=== PATIENT | male | born 1970 | race Caucasian/White ===

== ENCOUNTER 2017-11-14 17:04 | Observation (INO) | payer SELFPAY ==
[~2017-11-14] VITALS: Ht 182.9 cm; Wt 111.3 kg
[2017-11-14 17:39] LABS: BASOPHIL (%) 0.5 % (0-1); EOSINOPHIL (%) 0.6 % (0-5); EOSINOPHIL COUNT 0.1 K/uL (0-0.3); HEMATOCRIT 40.3 % (38.0-50.0); HEMOGLOBIN 14.7 G/DL (12.5-16.6); IMMATURE GRANULOCYTE (%) 0.4 % (0.0-0.7); LYMPHOCYTE (%) 28.1 % (15-42); LYMPHOCYTE COUNT 2.3 K/uL (1.0-2.8); MCH 33.2 PG (29.0-34.0); MCHC 36.5 G/DL (30.0-36.0); MONOCYTE (%) 7.9 % (3-12); MONOCYTE COUNT 0.7 K/uL (0-0.8); NEUTROPHIL (%) 62.5 % (45-76); NEUTROPHIL COUNT 5.1 K/uL (1.8-6.4); PLATELET COUNT 228 K/uL (156-360); RBC DIS.WIDTH-CV 12.4 % (11.8-14.6); RBC DIS.WIDTH-SD 41.2 % (39-53); RED BLOOD COUNT 4.43 M/uL (4.00-5.50); WHITE BLOOD COUNT 8.2 K/uL (4.1-10.2)
[2017-11-14 18:00] LABS: AMYLASE 44 IU/L (1-118); CHLORIDE 107 mEq/L (99-109); POTASSIUM 3.9 mEq/L (3.7-5.4); SODIUM 137 mEq/L (136-147)
[2017-11-14 18:02] LABS: GLUCOSE 107 mg/dL (70-99)
[2017-11-14 18:05] LABS: SERUM ETHYL ALCOHOL 10 mg/dL
[2017-11-14 18:06] LABS: CREATININE 0.9 mg/dL (0.6-1.3)
[2017-11-14 18:07] LABS: UREA NITROGEN (BUN) 22 mg/dL (9-23)
[2017-11-14 18:09] LABS: LIPASE 26 U/L (1.0-51.0)
[2017-11-14 18:14] LABS: GFR ESTIMATE (CALCULATED) > 59 mL/min/ (58.99-99999)
[2017-11-14 20:26] LABS: HEMATOCRIT 33.9 % (38.0-50.0); MCH 33.4 PG (29.0-34.0); MCHC 35.4 G/DL (30.0-36.0); MCV 94.4 FL (86-99); PLATELET COUNT 232 K/uL (156-360); RBC DIS.WIDTH-CV 12.8 % (11.8-14.6); RED BLOOD COUNT 3.59 M/uL (4.00-5.50); WHITE BLOOD COUNT 16.9 K/uL (4.1-10.2)
[2017-11-14 21:59] VITALS: BP 122/74
[2017-11-14 23:50] VITALS: BP 126/70
[2017-11-15 03:12] LABS: APPEARANCE CLEAR ((CLEAR)); BILIRUBIN NEGATIVE; BLOOD NEGATIVE; COLOR YELLOW ((YELLOW)); GLUCOSE (STRIP) NEGATIVE; KETONES NEGATIVE; LEUKOCYTES NEGATIVE; NITRITE NEGATIVE; PROTEIN (STRIP) NEGATIVE; SPECIFIC GRAVITY 1.046 (1.000-1.030); UCUL ADDED? NO; UROBILINOGEN 0.2 MG/DL (0.2-1.0)
[2017-11-15 03:33] LABS: BENZODIAZEPINES, URINE SCREEN POSITIVE (200 ng/mL)
[2017-11-15 04:06] VITALS: BP 110/59
[2017-11-15 06:40] LABS: HEMATOCRIT 30.7 % (38.0-50.0); HEMOGLOBIN 10.7 G/DL (12.5-16.6); MCH 32.7 PG (29.0-34.0); MCHC 34.9 G/DL (30.0-36.0); MCV 93.9 FL (86-99); PLATELET COUNT 213 K/uL (156-360); RBC DIS.WIDTH-CV 12.6 % (11.8-14.6); RBC DIS.WIDTH-SD 43.9 % (39-53); RED BLOOD COUNT 3.27 M/uL (4.00-5.50); WHITE BLOOD COUNT 11.5 K/uL (4.1-10.2)
[2017-11-15 07:04] LABS: CHLORIDE 103 MEQ/L (99-109); CREATININE 0.9 MG/DL (0.6-1.3); GFR ESTIMATE (CALCULATED) > 59 mL/min/ (58.99-99999); GLUCOSE 114 mg/dL (70-99); SODIUM 137 MEQ/L (136-147); UREA NITROGEN (BUN) 16 mg/dL (9-23)
[2017-11-15 07:06] LABS: POTASSIUM 5.2 MEQ/L (3.7-5.4)
[2017-11-15 07:59] VITALS: BP 140/87
[2017-11-15] MEDS ORDERED: ZESTORETIC 10-1 EAC1 PO (10:20)
[2017-11-15 11:24] VITALS: BP 128/78
[2017-11-15] MEDS ORDERED: HYDROCODON-ACE1 EAC9 PO (12:49)
[2017-11-15] MEDS ORDERED: IRON325 M1 PO (12:49)
== END 2017-11-15 15:19 | disposition home or self-care (01) ==
LOC: EME 17:04 → SDC 19:57 → 3EAST 20:00 → 2SOUTH 20:00 → 3EAST 20:00 → ENRESERV 20:04 → 3EAST 20:56
PROVIDERS: Emergency Medicine; Surgery
DX: S51.812A Laceration without foreign body of left forearm, initial encounter (principal); S29.022A Laceration of muscle and tendon of back wall of thorax, initial encounter; S25.81 Laceration of other blood vessels of thorax; S21.222A Laceration with foreign body of left back wall of thorax without penetration into thoracic cavity, initial encounter; S21.211A Laceration without foreign body of right back wall of thorax without penetration into thoracic cavity, initial encounter; M25.512 Pain in left shoulder; W11.XXXA Fall on and from ladder, initial encounter; W25.XXXA Contact with sharp glass, initial encounter; I10 Essential (primary) hypertension; Z91.030 Bee allergy status
CPT/HCPCS: 71045; 71260; 73090; 74177; 80047; 80048; 80306 90; 81003; 82150; 83690; 85025; 85027; 86850; 86900; 86901; 86920; 99281; 99285; G0378; G0480; J0330; J0690; J1100; J1170; J2250; J2405; J3010; J7030; J7120